=== PATIENT | female | born 1960 | race Caucasian/White ===

== ENCOUNTER 2016-06-15 12:17 | Emergency (ER) | payer OTHER ==
[~2016-06-15] VITALS: Ht 152.4 cm; Wt 55.9 kg
[~2016-06-15 12:17] MED LIST: ACYC400T2 PO; AMPH20CA5 PO; ESTR1TAB14 PO; FLUT16SP NS; LISI1TAB7 PO; OXYC-284 PO; SUMA50TA31 PO; TRIA60LO3 TOP
[2016-06-15 12:25] VITALS: BP 179/104; PULSE 78; RESP 18; O2SAT 98
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
[2016-06-15 15:30] LABS: BASOPHILS % (AUTO) 0.4 % (0-3); EOSINOPHILS % (AUTO) 1.4 % (0-5); MONOCYTES % (AUTO) 6.3 % (4-12); Mean Corpuscular Hemoglobin 30.2 pg (27.0-35.0); Mean Corpuscular Volume 91.5 fL (81-100); NEUTROPHILS % (AUTO) 58.7 % (40-74); Platelet Count 365 bil/L (150-400)
[2016-06-15 15:51] LABS: APPEARANCE,URINE CLEAR (CLEAR,HAZY); COLOR,URINE STRAW (YELLOW); OCCULT BLOOD,URINE TRACE (NEGATIVE); UROBILINOGEN,URINE NORMAL (NORMAL)
--- NOTE | 2016-06-15 16:39 | DRSVH ---
PROCEDURE: X-RAY ACUTE ABDOMINAL SERIES ([id number]) INDICATIONS: bloated/distended no BM TECHNIQUE: One view chest and two views of the abdomen were acquired. COMPARISON: None. FINDINGS: Surgical changes and devices: None. Chest: Lungs are clear. Heart size is normal. No pleural effusions. No pneumoperitoneum. Abdomen: Bowel gas pattern is normal except for minimal right-sided colonic obstipation. No suspici ous calcifications. Visualized solid organ contours appear normal. Bones: No suspicious bony lesions. IMPRESSION: Normal for age, normal bowel gas pattern. Minimal right-sided colonic obstipation. Dictated by: Franklyn De La Paz M.D. on 06/15/2016 at 16:37 Approved by: Franklyn De La Paz M.D. on 06/15/2016 at 16:37
[2016-06-15] MEDS ORDERED: POLY17PO6 PO (16:45)
[2016-06-15 16:55] VITALS: PULSE 78; RESP 18; O2SAT 98
== END 2016-06-15 16:55 | disposition home or self-care (01) ==
LOC: SED 12:17
DX: K59.00 Constipation, unspecified (principal); I10 Essential (primary) hypertension; Z87.891 Personal history of nicotine dependence; Z88.8 Allergy status to other drugs, medicaments and biological substances